=== PATIENT | female | born 1980 | race African-American/Black ===

== ENCOUNTER 2017-01-13 19:37 | Emergency (ER) | payer OTHER ==
[~2017-01-13] VITALS: Ht 170.2 cm; Wt 63.5 kg
[~2017-01-13 19:37] MED LIST: NAPROSYN250 M1; PRILOSEC40 MG PO
[2017-01-13 19:40] VITALS: BP 144/99
--- NOTE | 2017-01-13 21:46 | NUR ---
PATIENT LEFT WITHOUT BEING SEEN BY DR. WATTS. NO FURTHER CARE PROVIDED FOR PATIENT.
== END 2017-01-13 21:46 | disposition left against medical advice (07) ==
LOC: MED 19:37
DX: R07.89 Other chest pain (principal); Z53.21 Procedure and treatment not carried out due to patient leaving prior to being seen by health care provider